=== PATIENT | female | born 1945 | race Caucasian/White ===

== ENCOUNTER → 2016-05-28 | Outpatient (REF) | payer MEDICARE ==
[~2016-05-28] MED LIST: /DULO30CA OR; ACET500C PO; ALBU17IN2 INH; ALBU83IN IN; AMLO10TA2 PO; AMLO5TAB OR; AMLO5TAB2 PO; ARTI99.0 OP; ASPI325T PO; ASPI81TA83 OR; ASPI81TAEC PO; BACL10TA2 PO; CHLO125TA PO; CLOB0.0515 EXT; CLON-404 PO; CLON0.3T OR; CLONI1TA PO; CYAN1000VL IM; CYMB1CAP5 PO; DIOV320T OR; DIVA500T9 PO; DRIS1CAP PO; DRIS50002 PO; DULO1CAP3 PO; FLON0.05; FLON0.054; FLUT1SPR2; GLIM4TAB PO; GLUC1000 OR; HYDRODIURIL PO; INSULADS SC; INSULANT SC; LEVO50TA2 OR; LIPI80TA PO; MAG400TA PO; META1TAB19 PO; METF1000 PO; OMEP20TA7 OR; OMEP40CA2 PO; PAIN325T OR; PLAV75TA PO; REST0.05 OU; SIMV20TA2 OR; SIMV20TA2 PO; SPIR25TA2 OR; SPIR25TA2 PO; SYNT50TA PO; TECF240C PO; TOPA100T8 PO; TOPI100T OR; VALS1TAB46 PO; VALS1TAB47 PO; VALS1TAB48 PO; VALT500T OR; VALT500T PO; ZITH500T PO; ZONI50CA3 PO; [UNRECOGNIZED DRUG - OTHER] PO; drisdol PO; proventil INH
[2016-05-28 12:32] LABS: MEAN CORPUSCULAR HEMOGLOBIN 32.2 pg (27.0-33.0); MEAN CORPUSCULAR HGB CONC 31.9 g/dl (32.0-36.5); MEAN CORPUSCULAR VOLUME 100.9 fl (80.0-96.0); RED CELL DISTRIBUTION WIDTH 13.8 % (11.5-14.5); WHITE BLOOD COUNT 6.8 K/mm3 (4.0-10.0)
[2016-05-28 13:05] LABS: CALCIUM LEVEL 9.6 MG/DL (8.8-10.2); CREATININE FOR GFR 1.05 MG/DL (0.55-1.02); GLOMERULAR FILTRATION RATE 55.5 (>45); POTASSIUM SERUM 3.8 MEQ/L (3.5-5.1)
== END ==
LOC: M SFHCADAM 08:47
PROVIDERS: ATTEND Family Medicine
DX: D53.9 Nutritional anemia, unspecified (principal); E11.8 Type 2 diabetes mellitus with unspecified complications

== ENCOUNTER → 2016-11-12 | Outpatient (REF) | payer MEDICARE ==
[~2016-11-12] MED LIST changes: -PLAV75TA PO; +PLAV75TA38 PO
[2016-11-12 18:26] LABS: IMMUNOGLOBULIN G 715 MG/DL (681-1648); TOTAL PROTEIN 7.4 GM/DL (6.4-8.2)
[2016-11-12 18:35] LABS: IMMUNOGLOBULIN M 14.7 MG/DL (40-230)
[2016-11-14 10:59] LABS: ALBUMIN 4.37 GM/DL (3.29-5.55)
[2016-11-15 00:07] LABS: FREE LAMBDA LIGHT CHAINS SERUM 12.9 mg/L (5.7-26.3); KAPPA/LAMBDA RATIO SERUM 1.24 (0.26-1.65)
== END ==
LOC: M LAB REF 16:41
PROVIDERS: ATTEND Internal Medicine Medical Oncology
DX: D47.2 Monoclonal gammopathy (principal)

== ENCOUNTER → 2016-11-21 | Outpatient (REF) | payer MEDICARE ==
[~2016-11-21] MED LIST changes: -CLON-404 PO; +CLON0.3T PO; -METF1000 PO; +METF10004 PO; +PLAV1TAB2 PO; -PLAV75TA38 PO; +TIZANIDINE; +TOPA100T12 PO; -TOPA100T8 PO
[2016-11-21 20:13] LABS: MICROSCOPIC INDICATED? MAN NO (NO)
== END ==
LOC: M SFHCADAM 15:50
PROVIDERS: ATTEND Family Medicine
DX: R35.0 Frequency of micturition (principal)

== ENCOUNTER 2016-11-28 17:18 | Emergency (ER) | payer MEDICARE, MEDICAID ==
[~2016-11-28] VITALS: Ht 152.4 cm; Wt 76.1 kg
[~2016-11-28 17:18] MED LIST changes: -TIZANIDINE
[2016-11-28] MEDS ORDERED: TIZANIDINE (17:31)
[2016-11-28] MEDS ORDERED: diphenhydrAMINE INJ 50MG/ML VIAL (J1200) IV STA (17:50)
[2016-11-28] MEDS ORDERED: NS 1,000 ML IV ONE (18:00)
[2016-11-28] MEDS ORDERED: METOCLOPRAMIDE INJ 10MG/2ML VIAL (J2765) IV ONE (18:00)
--- NOTE | 2016-11-28 18:14 | REP ---
REASON: Headache. COMPARISON: 03/13/2016 There is no change from the prior exam. 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 There is no evidence of an acute intracranial hemorrhagic or nonhemorrhagic event. There is no change in the appearance of the ventricles or sulci. There is no change in the appearance of the deep white matter. There is no change in appearance of the skull and there is no change in appearance of the paranasal sinuses and mastoid air cells. IMPRESSION: No changes, no acute disease. Signed by Orestes Lilly DO 11/28/2016 07:21 P
[2016-11-28 19:08] VITALS: BP 145/68
== END 2016-11-28 19:10 | disposition home or self-care (01) ==
LOC: M ED 17:18
DX: G43.909 Migraine, unspecified, not intractable, without status migrainosus (principal); E11.9 Type 2 diabetes mellitus without complications; G35 Multiple sclerosis; Z86.73 Personal history of transient ischemic attack (TIA), and cerebral infarction without residual deficits; Z88.1 Allergy status to other antibiotic agents; Z88.8 Allergy status to other drugs, medicaments and biological substances; Z79.82 Long term (current) use of aspirin; Z79.4 Long term (current) use of insulin; Z79.899 Other long term (current) drug therapy
CPT/HCPCS: 70450; 96374; 96375; 99283; J1200; J2765

== ENCOUNTER → 2016-12-18 | Outpatient (REF) | payer MEDICARE ==
[~2016-12-18] MED LIST changes: +TIZANIDINE
== END ==
LOC: M SMT 13:14
PROVIDERS: ATTEND Specialist
DX: N39.41 Urge incontinence (principal); R35.0 Frequency of micturition; R35.1 Nocturia

== ENCOUNTER → 2016-12-20 | Outpatient (REF) | payer MEDICARE ==
[2016-12-20 14:05] LABS: ALBUMIN 3.5 GM/DL (3.2-5.2); ALBUMIN/GLOBULIN RATIO 1.21 (1.00-1.93); ALKALINE PHOSPHATASE 67 U/L (45-117); ALT/SGPT 36 U/L (12-78); ANION GAP 11 MEQ/L (8-16); AST/SGOT 26 U/L (15-37); BILIRUBIN,TOTAL 0.5 MG/DL (0.2-1.0); BLOOD UREA NITROGEN 15 MG/DL (7-18); CARBON DIOXIDE LEVEL 27 MEQ/L (21-32); CHLORIDE LEVEL 103 MEQ/L (98-107); CHOLESTEROL LEVEL 136 MG/DL (<200); CREATININE FOR GFR 0.94 MG/DL (0.55-1.02); GLOMERULAR FILTRATION RATE > 60.0 (>45); GLUCOSE, FASTING 274 MG/DL (80-110); POTASSIUM SERUM 3.8 MEQ/L (3.5-5.1); SODIUM LEVEL 141 MEQ/L (136-145); TOTAL PROTEIN 6.4 GM/DL (6.4-8.2); TRIGLYCERIDES LEVEL 224 MG/DL (<150)
[2016-12-20 16:37] LABS: VITAMIN B12 LEVEL 533 PG/ML (247-911)
== END ==
LOC: M SFHCPLAZ 10:50
PROVIDERS: ATTEND Family Medicine
DX: E11.8 Type 2 diabetes mellitus with unspecified complications (principal); E78.2 Mixed hyperlipidemia; D51.9 Vitamin B12 deficiency anemia, unspecified

== ENCOUNTER → 2016-12-26 | Outpatient (REF) | payer MEDICARE ==
[2016-12-26 16:32] LABS: ALBUMIN 3.7 GM/DL (3.2-5.2); CALCIUM LEVEL 8.9 MG/DL (8.8-10.2); CREATININE FOR GFR 1.17 MG/DL (0.55-1.02); PHOSPHORUS LEVEL 2.6 MG/DL (2.5-4.9); POTASSIUM SERUM 3.9 MEQ/L (3.5-5.1)
== END ==
LOC: M SFHCPLAZ 14:38
PROVIDERS: ATTEND Physician Assistant
DX: E11.8 Type 2 diabetes mellitus with unspecified complications (principal)

== ENCOUNTER → 2017-01-01 | Outpatient (REF) | payer MEDICARE ==
[2017-01-01 16:42] LABS: ALBUMIN 3.7 GM/DL (3.2-5.2); CALCIUM LEVEL 9.6 MG/DL (8.8-10.2); CREATININE FOR GFR 1.06 MG/DL (0.55-1.02); GLOMERULAR FILTRATION RATE 54.7 (>45); PHOSPHORUS LEVEL 3.7 MG/DL (2.5-4.9); POTASSIUM SERUM 4.4 MEQ/L (3.5-5.1)
== END ==
LOC: M SFHCPLAZ 12:06
PROVIDERS: ATTEND Physician Assistant
DX: E11.8 Type 2 diabetes mellitus with unspecified complications (principal)

== ENCOUNTER → 2017-09-10 | Outpatient (REF) | payer MEDICARE ==
[2017-09-10 12:58] LABS: HEMATOCRIT 38.4 % (36.0-47.0); HEMOGLOBIN 12.7 g/dl (12.0-15.5); MEAN CORPUSCULAR HEMOGLOBIN 32.5 pg (27.0-33.0); MEAN CORPUSCULAR HGB CONC 33.1 g/dl (32.0-36.5); MEAN CORPUSCULAR VOLUME 98.2 fl (80.0-96.0); PLATELET COUNT, AUTOMATED 233 10^3/uL (150-450); RED BLOOD COUNT 3.91 10^6/uL (4.00-5.40); RED CELL DISTRIBUTION WIDTH 14.3 % (11.5-14.5); WHITE BLOOD COUNT 7.1 10^3/uL (4.0-10.0)
[2017-09-10 13:54] LABS: ALBUMIN 3.7 GM/DL (3.2-5.2); ALBUMIN/GLOBULIN RATIO 1.09 (1.00-1.93); ALKALINE PHOSPHATASE 66 U/L (45-117); ALT/SGPT 34 U/L (12-78); ANION GAP 9 MEQ/L (8-16); AST/SGOT 21 U/L (7-37); BILIRUBIN,TOTAL 0.3 MG/DL (0.2-1.0); BLOOD UREA NITROGEN 21 MG/DL (7-18); CALCIUM LEVEL 8.6 MG/DL (8.8-10.2); CARBON DIOXIDE LEVEL 23 MEQ/L (21-32); CHLORIDE LEVEL 110 MEQ/L (98-107); CHOLESTEROL LEVEL 104 MG/DL (<200); GLOMERULAR FILTRATION RATE > 60.0 (>45); GLUCOSE, FASTING 267 MG/DL (70-100); HDL CHOLESTEROL 46 MG/DL (>40); LDL CHOLESTEROL 24.8 MG/DL (<100); NON-HDL-C 58 MG/DL; SODIUM LEVEL 142 MEQ/L (136-145); TOTAL PROTEIN 7.1 GM/DL (6.4-8.2); TRIGLYCERIDES LEVEL 166 MG/DL (<150)
[2017-09-10 13:57] LABS: CREATININE, URINE 92.3 MG/DL; MALB URINE SIEMENS 12.8 MG/L; MAU/CREAT RATIO 13.8 MCG/MG (0.0-30.0)
[2017-09-10 15:20] LABS: ESTIMATED AVERAGE GLUCOSE 206 MG/DL (60-110); HEMOGLOBIN A1c 8.8 %
== END ==
LOC: M SFHCADAM 09:44
DX: E11.8 Type 2 diabetes mellitus with unspecified complications (principal); E78.2 Mixed hyperlipidemia; E03.9 Hypothyroidism, unspecified; D51.9 Vitamin B12 deficiency anemia, unspecified
CPT/HCPCS: 84443

== ENCOUNTER → 2017-10-03 | Outpatient (CLI) | payer MEDICARE | LOC: M WHC 07:47 | DX: Z12.31 Encounter for screening mammogram for malignant neoplasm of breast (principal); Z78.0 Asymptomatic menopausal state; Z80.0 Family history of malignant neoplasm of digestive organs; Z92.0 Personal history of contraception | CPT/HCPCS: 77067 ==

== ENCOUNTER → 2017-12-09 | Outpatient (CLI) | payer MEDICARE | LOC: M RAD 10:28 | DX: I63.9 Cerebral infarction, unspecified (principal); I65.23 Occlusion and stenosis of bilateral carotid arteries | CPT/HCPCS: 93880 ==

== ENCOUNTER → 2017-12-10 | Outpatient (REF) | payer MEDICARE | LOC: M SFHCADAM 11:40 | DX: R30.0 Dysuria (principal) | CPT/HCPCS: 87186 ==

== ENCOUNTER → 2018-02-12 | Outpatient (REF) | payer MEDICARE, MEDICAID ==
[2018-02-12 19:02] LABS: ESTIMATED AVERAGE GLUCOSE 197 MG/DL (60-110); HEMOGLOBIN A1c 8.5 %
== END ==
LOC: M SFHCPLAZ 15:41
DX: E11.8 Type 2 diabetes mellitus with unspecified complications (principal)
CPT/HCPCS: 83036

== ENCOUNTER → 2018-05-04 | Outpatient (REF) | payer MEDICARE, MEDICAID ==
[2018-05-04 18:04] LABS: BASO # 0.1 10^3/uL (0.0-0.2); BASO % 0.6 % (0.0-1.0); EOS # 0.3 10^3/uL (0.0-0.50); EOS % 3.3 % (0.0-3.0); HEMATOCRIT 38.6 % (36.0-47.0); HEMOGLOBIN 12.7 g/dl (12.0-15.5); IMMATURE GRANULOCYTE % 0.4 % (0-3.0); LYMPH # 1.4 10^3/uL (1.5-4.5); LYMPH % 17.8 % (24.0-44.0); MEAN CORPUSCULAR HEMOGLOBIN 35.7 pg (27.0-33.0); MEAN CORPUSCULAR HGB CONC 32.9 g/dl (32.0-36.5); MEAN CORPUSCULAR VOLUME 108.4 fl (80.0-96.0); MONO # 0.6 10^3/uL (0.0-0.8); MONO % 7.6 % (0.0-5.0); NEUTROPHILS # 5.5 10^3/uL (1.8-7.7); NEUTROPHILS % 70.3 % (36.0-66.0); PLATELET COUNT, AUTOMATED 273 10^3/uL (150-450); RED BLOOD COUNT 3.56 10^6/uL (4.00-5.40); RED CELL DISTRIBUTION WIDTH 14.3 % (11.5-14.5); WHITE BLOOD COUNT 7.8 10^3/uL (4.0-10.0)
[2018-05-04 18:31] LABS: ALBUMIN/GLOBULIN RATIO 1.43 (1.00-1.93); ALKALINE PHOSPHATASE 51 U/L (45-117); ALT/SGPT 30 U/L (12-78); ANION GAP 10 MEQ/L (8-16); AST/SGOT 16 U/L (7-37); BILIRUBIN,TOTAL 0.3 MG/DL (0.2-1.0); BLOOD UREA NITROGEN 15 MG/DL (7-18); CARBON DIOXIDE LEVEL 23 MEQ/L (21-32); CHLORIDE LEVEL 109 MEQ/L (98-107); CREATININE FOR GFR 1.05 MG/DL (0.55-1.30); GLOMERULAR FILTRATION RATE 55.2 (>39); GLUCOSE, FASTING 186 MG/DL (70-100); POTASSIUM SERUM 4.6 MEQ/L (3.5-5.1); SODIUM LEVEL 142 MEQ/L (136-145); TOTAL PROTEIN 6.8 GM/DL (6.4-8.2)
[2018-05-04 18:40] LABS: VITAMIN B12 LEVEL 1879 PG/ML
[2018-05-04 18:41] LABS: FOLATE 18.3 NG/ML
== END ==
LOC: M LABNEURO 11:34
DX: G35 Multiple sclerosis (principal)
CPT/HCPCS: 82746

== ENCOUNTER → 2018-07-07 | Outpatient (REF) | payer MEDICARE, MEDICAID ==
[~2018-07-07] MED LIST changes: -AMLO10TA2 PO; +AMLO10TA5 PO; -AMLO5TAB2 PO; +AMLO5TAB6 PO; -DRIS50002 PO; +DRIS50003 PO; +SPIR-10 PO; -SPIR25TA2 PO
[2018-07-07 18:16] LABS: BASO % 0.5 % (0.0-1.0); EOS # 0.4 10^3/uL (0.0-0.50); EOS % 4.6 % (0.0-3.0); HEMATOCRIT 37.5 % (36.0-47.0); HEMOGLOBIN 12.5 g/dl (12.0-15.5); LYMPH # 1.7 10^3/uL (1.5-4.5); LYMPH % 20.5 % (24.0-44.0); MEAN CORPUSCULAR HEMOGLOBIN 35.6 pg (27.0-33.0); MEAN CORPUSCULAR HGB CONC 33.3 g/dl (32.0-36.5); MEAN CORPUSCULAR VOLUME 106.8 fl (80.0-96.0); MONO # 0.5 10^3/uL (0.0-0.8); MONO % 5.8 % (0.0-5.0); NEUTROPHILS # 5.5 10^3/uL (1.8-7.7); NEUTROPHILS % 68.2 % (36.0-66.0); PLATELET COUNT, AUTOMATED 238 10^3/uL (150-450); RED BLOOD COUNT 3.51 10^6/uL (4.00-5.40); WHITE BLOOD COUNT 8.1 10^3/uL (4.0-10.0)
[2018-07-07 18:20] LABS: CALCIUM LEVEL 9.4 MG/DL (8.8-10.2); CREATININE FOR GFR 1.07 MG/DL (0.55-1.30); POTASSIUM SERUM 4.9 MEQ/L (3.5-5.1)
== END ==
LOC: M SFHCADAM 14:20
PROVIDERS: ATTEND Physician Assistant Medical
DX: R68.89 Other general symptoms and signs (principal); R19.5 Other fecal abnormalities; J06.9 Acute upper respiratory infection, unspecified
CPT/HCPCS: 80048; 85025; G0463

== ENCOUNTER → 2018-09-07 | Outpatient (REF) | payer MEDICARE, MEDICAID ==
[~2018-09-07] MED LIST changes: -/DULO30CA OR; +ASPI-1 PO; -ASPI325T PO; +CYMB1CAP5 OR; -META1TAB19 PO; +META400T PO; -VALS1TAB46 PO; -VALS1TAB47 PO; -VALS1TAB48 PO; +VALS1TAB66 PO; +VALS1TAB67 PO; +VALS1TAB68 PO
[2018-09-07 13:46] LABS: APPEARANCE, URINE CLEAR (CLEAR); BACTERIA, URINE AUTO NEGATIVE (NEGATIVE); BILIRUBIN, URINE AUTO 1+ (NEGATIVE); BLOOD, URINE BLOOD NEGATIVE (NEGATIVE); COLOR, URINE AMBER (YELLOW); GLUCOSE, URINE (UA) AUTO NEGATIVE (NEGATIVE); GRANULAR CAST, URINE AUTO 14 /LPF; KETONE, URINE AUTO TRACE mg/dL (NEGATIVE); LEUKOCYTE ESTERASE, URINE AUTO 1+ (NEGATIVE); MUCUS, URINE SMALL (NEGATIVE); NITRITE, URINE AUTO NEGATIVE (NEGATIVE); PROTEIN, URINE AUTO 1+ mg/dL (NEGATIVE); RBC, URINE AUTO 2 /HPF (0-3); SPECIFIC GRAVITY URINE AUTO 1.028 (1.002-1.035); SQUAMOUS EPITHELIAL CELL UR AU 1 /HPF (0-6); WBC, URINE AUTO 2 /HPF (0-3)
== END ==
LOC: M SMT 12:54
PROVIDERS: ATTEND Nurse Practitioner Women's Health
DX: N39.41 Urge incontinence (principal)
CPT/HCPCS: 51798; 81001; 87086; G0463

== ENCOUNTER → 2018-10-06 | Outpatient (CLI) | payer MEDICARE, MEDICAID ==
--- NOTE | 2018-10-06 12:59 | REPMRS ---
Patient History The patient states she had a clinical breast exam in August 2018.Family history of prostate cancer at age 67 in father, colorectal cancer at age 67 in brother, colorectal cancer at age 50 in brother. Reductions of both breasts. Took hormonal contraceptives for 7 years. Took unspecified hormones for 20 years. Digital Mammo Screening Bilat: October 06, 2018 - Exam #: [id number] Bilateral CC and MLO view(s) were taken. Technologist: Chandrika Garcia, Technologist Prior study comparison: October 03, 2017, digital woman screen mammo, performed at [facility]. December 29, 2012, bilateral bilat screen digital mammo, performed at [facility] ([facility]). December 20, 2010, bilateral screening mammogram, performed at [facility] ([facility]). FINDINGS: There are scattered fibroglandular densities. There has been no change in the appearance of the mammogram from the prior studies. There is a mild amount of scattered fibroglandular density which is fairly symmetric. There is no interval development of dominant mass, architectural distortion, or clustered microcalcification suggestive of malignancy. 3-D tomosynthesis shows no additional findings. Assessment: BI-RADS/ACR category 1 mammogram. Negative Mammogram. Recommendation Routine screening mammogram of both breasts in 1 year (for women over age 40). This patient's Lifetime Breast Cancer RIsk is estimated at 3.0 %. This mammogram was interpreted with the aid of an FDA-approved computer-aided dectection system. Electronically Signed By: Juan Barth MD 10/06/18 [id number]
== END ==
LOC: M RAD 11:02
PROVIDERS: ATTEND Family Medicine
DX: Z12.31 Encounter for screening mammogram for malignant neoplasm of breast (principal); Z80.0 Family history of malignant neoplasm of digestive organs; Z92.0 Personal history of contraception; Z92.23 Personal history of estrogen therapy

== ENCOUNTER → 2019-02-23 | Outpatient (CLI) | payer MEDICARE, MEDICAID ==
[~2019-02-23] MED LIST changes: -ARTI99.0 OP; +ARTIDRO2 OP; -DULO1CAP3 PO; +DULO1CAP6 PO
--- NOTE | 2019-02-23 15:01 | REP ---
CT of the abdomen pelvis without IV and oral contrast for renal calculus: There are no renal calculi. There are no ureteral calculi. There are no bladder calculi. There is no hydronephrosis or perinephric stranding. No renal cysts are identified. The study is insensitive for renal solid masses in the absence of IV contrast. The visualized lung pugh are unremarkable. The unenhanced hepatic parenchyma, gallbladder, pancreas, spleen, adrenals, abdominal aorta, bowel and mesentery are unremarkable except for sigmoid colon diverticulosis without CT evidence of diverticulitis. The sigmoid colon is quite tortuous extending across the midline into the abdominal right lower quadrant. There is no bowel distension or obstruction. Pelvis: The cecum is on a redundant mesentery and resides over the mid and. There are surgical clips at the cecal tip compatible with the history of appendectomy. There is a hysterectomy. The vaginal cuff and adnexa are unremarkable. The bladder is unremarkable. There is no pelvic ascites or adenopathy. Impression: There are no renal, ureteral or bladder calculi. There is no hydronephrosis. There is sigmoid diverticulosis without diverticulitis. The sigmoid colon is redundant and crosses the midline into the abdominal right lower quadrant. The cecum is on a redundant mesentery residing over the midline. There is an appendectomy. There are surgical clips at the cecal tip. There is no bowel distension or obstruction. No ascites or adenopathy. Hysterectomy. Electronically Signed by Jayy Moyer MD 02/23/2019 02:52 P
== END ==
LOC: M RAD 12:16
PROVIDERS: ATTEND Internal Medicine Nephrology
DX: N20.0 Calculus of kidney (principal); K57.30 Diverticulosis of large intestine without perforation or abscess without bleeding

== ENCOUNTER → 2019-02-24 | Outpatient (REF) | payer MEDICARE, MEDICAID | LOC: M LAB REF 15:51 | PROVIDERS: ATTEND Orthopaedic Surgery | DX: G56.01 Carpal tunnel syndrome, right upper limb (principal) ==

== ENCOUNTER → 2019-03-15 | Outpatient (REF) | payer MEDICARE, MEDICAID ==
[~2019-03-15] MED LIST changes: -GLIM4TAB PO; +GLIM4TAB3 PO; -OMEP40CA2 PO; +OMEP40CA97 PO
[2019-03-15 13:41] LABS: APPEARANCE, URINE CLEAR (CLEAR); BACTERIA, URINE AUTO NEGATIVE (NEGATIVE); BASO # 0.1 10^3/uL (0.0-0.2); BILIRUBIN, URINE AUTO NEGATIVE (NEGATIVE); BLOOD, URINE BLOOD NEGATIVE (NEGATIVE); COLOR, URINE YELLOW (YELLOW); EOS # 0.3 10^3/uL (0.0-0.5); EOS % 3.7 % (0.0-3.0); GLUCOSE, URINE (UA) AUTO NEGATIVE (NEGATIVE); HEMATOCRIT 40.6 % (36.0-47.0); HEMOGLOBIN 13.1 g/dl (12.0-15.5); KETONE, URINE AUTO TRACE mg/dL (NEGATIVE); LEUKOCYTE ESTERASE, URINE AUTO NEGATIVE (NEGATIVE); LYMPH # 1.8 10^3/uL (1.5-5.0); MEAN CORPUSCULAR HEMOGLOBIN 34.8 pg (27.0-33.0); MEAN CORPUSCULAR HGB CONC 32.3 g/dl (32.0-36.5); MONO # 0.8 10^3/uL (0.0-0.8); MONO % 8.9 % (0.0-5.0); MUCUS, URINE SMALL (NEGATIVE); NEUTROPHILS # 5.5 10^3/uL (1.5-8.5); NITRITE, URINE AUTO NEGATIVE (NEGATIVE); PLATELET COUNT, AUTOMATED 245 10^3/uL (150-450); PROTEIN, URINE AUTO NEGATIVE (NEGATIVE); RBC, URINE AUTO 0 /HPF (0-3); RED BLOOD COUNT 3.76 10^6/uL (4.00-5.40); SPECIFIC GRAVITY URINE AUTO 1.024 (1.002-1.035); SQUAMOUS EPITHELIAL CELL UR AU 0 /HPF (0-6); WBC, URINE AUTO 1 /HPF (0-3); WHITE BLOOD COUNT 8.4 10^3/uL (4.0-10.0)
[2019-03-15 14:10] LABS: ALBUMIN 4.3 GM/DL (3.2-5.2); BILIRUBIN,TOTAL 0.2 MG/DL (0.2-1.0); CALCIUM LEVEL 9.3 MG/DL (8.8-10.2); CREATININE FOR GFR 1.04 MG/DL (0.55-1.30); GLOMERULAR FILTRATION RATE 55.6 (>39); POTASSIUM SERUM 4.4 MEQ/L (3.5-5.1); TOTAL PROTEIN 7.4 GM/DL (6.4-8.2)
== END ==
LOC: M LABNEURO 11:20
PROVIDERS: ATTEND Psychiatry & Neurology Neurology
DX: G35 Multiple sclerosis (principal); Z79.899 Other long term (current) drug therapy

== ENCOUNTER → 2019-04-09 | Outpatient (CLI) | payer MEDICARE, MEDICAID ==
[2019-04-09 11:05] LABS: HEMATOCRIT 38.9 % (36.0-47.0); HEMOGLOBIN 12.5 g/dl (12.0-15.5); MEAN CORPUSCULAR HEMOGLOBIN 34.2 pg (27.0-33.0); MEAN CORPUSCULAR HGB CONC 32.1 g/dl (32.0-36.5); MEAN CORPUSCULAR VOLUME 106.6 fl (80.0-96.0); PLATELET COUNT, AUTOMATED 261 10^3/uL (150-450); RED BLOOD COUNT 3.65 10^6/uL (4.00-5.40); WHITE BLOOD COUNT 7.9 10^3/uL (4.0-10.0)
[2019-04-09 11:48] LABS: BILIRUBIN,TOTAL 0.3 MG/DL (0.2-1.0); CALCIUM LEVEL 9.1 MG/DL (8.8-10.2); CHOLESTEROL RISK RATIO 2.488 (<5); CREATININE FOR GFR 1.05 MG/DL (0.55-1.30); FREE T4 0.94 NG/DL (0.76-1.46); POTASSIUM SERUM 4.3 MEQ/L (3.5-5.1); THYROID STIMULATING HORMONE 2.73 uIU/ML (0.358-3.740); TOTAL PROTEIN 6.8 GM/DL (6.4-8.2)
[2019-04-09 11:52] LABS: MALB URINE SIEMENS 18.8 MG/L
[2019-04-09 11:56] LABS: HEMOGLOBIN A1c 7.6 %
== END ==
LOC: M LAB 10:17
PROVIDERS: ATTEND Family Medicine
DX: F32.9 Major depressive disorder, single episode, unspecified (principal); I11.9 Hypertensive heart disease without heart failure; E03.9 Hypothyroidism, unspecified; E11.8 Type 2 diabetes mellitus with unspecified complications

== ENCOUNTER → 2019-07-20 | Outpatient (REF) | payer MEDICARE, MEDICAID ==
[~2019-07-20] MED LIST changes: -ARTIDRO2 OP; -GLIM4TAB3 PO; +GLIM4TAB5 PO; +POLYOPD OP; -SIMV20TA2 PO; +SIMV20TA22 PO; +ZONI50CA11 PO; -ZONI50CA3 PO
[2019-07-20 12:51] LABS: HEMATOCRIT 37.7 % (36.0-47.0); HEMOGLOBIN 11.9 g/dl (12.0-15.5); MEAN CORPUSCULAR HEMOGLOBIN 33.5 pg (27.0-33.0); MEAN CORPUSCULAR HGB CONC 31.6 g/dl (32.0-36.5); MEAN CORPUSCULAR VOLUME 106.2 fl (80.0-96.0); PLATELET COUNT, AUTOMATED 268 10^3/uL (150-450); RED BLOOD COUNT 3.55 10^6/uL (4.00-5.40); WHITE BLOOD COUNT 8.9 10^3/uL (4.0-10.0)
[2019-07-20 13:21] LABS: HEMOGLOBIN A1c 7.6 %
[2019-07-20 13:29] LABS: ALT/SGPT 23 U/L (12-78); BILIRUBIN,TOTAL 0.3 MG/DL (0.2-1.0); BLOOD UREA NITROGEN 22 MG/DL (7-18); CALCIUM LEVEL 8.9 MG/DL (8.8-10.2); CARBON DIOXIDE LEVEL 25 MEQ/L (21-32); CHLORIDE LEVEL 110 MEQ/L (98-107); CHOLESTEROL LEVEL 108 MG/DL (<200); CHOLESTEROL RISK RATIO 2.769 (<5); CREATININE FOR GFR 1.05 MG/DL (0.55-1.30); FREE T4 1.04 NG/DL (0.76-1.46); GLUCOSE, FASTING 105 MG/DL (70-100); HDL CHOLESTEROL 39 MG/DL (>40); LDL CHOLESTEROL 42 MG/DL (<100); NON-HDL-C 69 MG/DL; POTASSIUM SERUM 4.1 MEQ/L (3.5-5.1); SODIUM LEVEL 142 MEQ/L (136-145); TOTAL PROTEIN 7.1 GM/DL (6.4-8.2); TRIGLYCERIDES LEVEL 137 MG/DL (<150); VITAMIN B12 LEVEL 1239 PG/ML (247-911)
[2019-07-22 00:07] LABS: FREE KAPPA LIGHT CHAINS SERUM 17.6 mg/L (3.3-19.4); FREE LAMBDA LIGHT CHAINS SERUM 14.5 mg/L (5.7-26.3); KAPPA/LAMBDA RATIO SERUM 1.21 (0.26-1.65)
[2019-07-22 10:51] LABS: ALBUMIN 4.35 GM/DL (3.29-5.55); ALBUMIN % 61.2 % (55.8-66.1); ALPHA-1-GLOBULIN % 4.9 % (2.9-4.9); ALPHA-1-GLOBULINS 0.35 GM/DL (0.17-0.41); ALPHA-2-GLOBULINS 0.92 GM/DL (0.42-0.99); ALPHA-2-GLOBULINS % 12.9 % (7.1-11.8); BETA-1-GLOBULINS 0.55 GM/DL (0.28-0.60); BETA-1-GLOBULINS % 7.8 % (4.7-7.2); BETA-2-GLOBULINS 0.35 GM/DL (0.19-0.55); BETA-2-GLOBULINS % 4.9 % (3.2-6.5); GAMMA GLOBULIN % 8.3 % (11.1-18.8); GAMMA GLOBULINS 0.59 GM/DL (0.65-1.58)
== END ==
LOC: M SFHCADAM 11:18
PROVIDERS: ATTEND Family Medicine
DX: D51.9 Vitamin B12 deficiency anemia, unspecified (principal); E11.8 Type 2 diabetes mellitus with unspecified complications; E03.9 Hypothyroidism, unspecified; D75.89 Other specified diseases of blood and blood-forming organs; E78.2 Mixed hyperlipidemia

== ENCOUNTER → 2019-07-20 | Outpatient (CLI) | payer MEDICARE, MEDICAID ==
--- NOTE | 2019-07-20 14:07 | REP ---
CHEST, TWO VIEWS: COMPARISON: 03/15/2016 There is no evidence of acute infiltrate. The heart is normal in size. There is calcification of the thoracic aorta. Mediastinal silhouette is unchanged. There is mild curvature of the thoracic spine towards the right with diffuse degenerative changes. IMPRESSION: No acute pulmonary disease. Electronically Signed by Jayy Domingo MD 07/20/2019 08:19 P
== END ==
LOC: M ADAMS 11:24
PROVIDERS: ATTEND Family Medicine
DX: R53.83 Other fatigue (principal); E11.8 Type 2 diabetes mellitus with unspecified complications
CPT/HCPCS: 71046; 80053; 80061; 82607; 83036; 83883; 84165; 84439; 84443; 85027; 86335; G0463

== ENCOUNTER → 2019-11-08 | Outpatient (CLI) | payer MEDICARE, MEDICAID ==
--- NOTE | 2019-11-08 12:38 | REP ---
REASON: Hematuria. Limited pelvic ultrasound was obtained to assess the urinary bladder. The pre-void urinary bladder volume calculation is 126 mL and the postvoid urinary bladder volume calculation is 73 mL. This renders a 57.9% postvoid residual. No gross urinary bladder abnormalities were noted. Doppler at the UV junction failed to identify urojet phenomena on either side. IMPRESSION: As above. Electronically Signed by Orestes Lilly DO 11/08/2019 04:03 P
== END ==
LOC: M LRY 09:27
PROVIDERS: ATTEND Nurse Practitioner Family
DX: R31.9 Hematuria, unspecified (principal)

== ENCOUNTER → 2019-12-28 | Outpatient (REF) | payer MEDICARE, MEDICAID ==
[~2019-12-28] MED LIST changes: -AMLO10TA5 PO; +AMLO1TAB24 PO; +AMLO1TAB25 PO; -AMLO5TAB6 PO; +CARV6.25 PO; +CYMB60CA3 PO; +DEPA250T32 PO; +DILT60TA PO; +ELIQ5TAB; +FAMO40TA3; +HYDR-643; +LANTINJ4; +LEVO75TA4; +MAPA500T2 PO; +TOPI100T9; +VENTAER
== END ==
LOC: M LAB REF 16:49
PROVIDERS: ATTEND Nurse Practitioner Family
DX: L08.9 Local infection of the skin and subcutaneous tissue, unspecified (principal)

== ENCOUNTER → 2020-01-19 | Outpatient (REF) | payer MEDICARE, MEDICAID | LOC: M LAB REF 10:10 | PROVIDERS: ATTEND Ophthalmology | DX: H02.831 Dermatochalasis of right upper eyelid (principal); H02.89 Other specified disorders of eyelid ==

== ENCOUNTER → 2020-03-07 | Outpatient (REF) | payer MEDICARE, MEDICAID ==
[2020-03-07 17:59] LABS: PERCENT SATURATION 8.3 % (13.2-45.0)
[2020-03-07 18:10] LABS: FOLATE 13.5 NG/ML
== END ==
LOC: M LAB REF 17:10
PROVIDERS: ATTEND Nurse Practitioner Family
DX: D50.9 Iron deficiency anemia, unspecified (principal)

== ENCOUNTER → 2020-03-15 | Outpatient (CLI) | payer MEDICARE, MEDICAID | LOC: M LABSMTC 11:59 | PROVIDERS: ATTEND Anesthesiology | DX: Z01.812 Encounter for preprocedural laboratory examination (principal); Z20.828 Contact with and (suspected) exposure to other viral communicable diseases | CPT/HCPCS: C9803; U0003 ==

== ENCOUNTER 2020-03-20 08:52 | Day surgery (SDC) | payer MEDICARE, MEDICAID ==
[~2020-03-20] VITALS: Ht 152.4 cm; Wt 71.7 kg
[~2020-03-20 08:52] MED LIST changes: -CARV6.25 PO; -CYMB60CA3 PO; -DEPA250T32 PO; -DILT60TA PO; +NS 1,000 ML IV ONE
[2020-03-20] MEDS ORDERED: propofoL 500 MG/50 ML VIAL As Ordered ONE (09:44)
[2020-03-20] MEDS ORDERED: LIDOCAINE 2% 100MG/5ML SDV (FOR ANES.) As Ordered ONE (09:51)
--- NOTE | 2020-03-20 10:28 | ROOR ---
Patient Name: Juani Yang Procedure Date: 03/20/2020 10:11 AM Date of : 1945 Age: 74 Room: [facility] Gender: Female Note Status: Finalized Procedure: Upper Endoscopy + Biopsies Indications: Iron deficiency anemia, Unexplained iron deficiency anemia Providers: Lucas Rodrigues MD Referring MD: Karl Michel MD Requesting Provider: Medicines: Monitored Anesthesia Care Complications: No immediate complications. Procedure: Pre-Anesthesia Assessment: - The heart rate, respiratory rate, oxygen saturations, blood pressure, adequacy of pulmonary ventilation, and response to care were monitored throughout the procedure. The Endoscope was introduced through the mouth, and advanced to the second part of duodenum. The upper GI endoscopy was accomplished without difficulty. The patient tolerated the procedure well. Findings: The Z-line was variable and was found 35 cm from the incisors. A small hiatal hernia was present. No other significant abnormalities were identified in a careful examination of the stomach. Biopsies were taken with a cold forceps in the gastric antrum for Helicobacter pylori testing. The exam of the duodenum was otherwise normal. Biopsies for histology were taken with a cold forceps in the first portion of the duodenum for evaluation of celiac disease. Impression: - Z-line variable, 35 cm from the incisors. - Small hiatal hernia. - Biopsies were taken with a cold forceps for Helicobacter pylori testing. - Biopsies were taken with a cold forceps for evaluation of celiac disease. - The examination was otherwise normal. Recommendation: - Patient has a contact number available for emergencies. The signs and symptoms of potential delayed complications were discussed with the patient. Return to normal activities tomorrow. Written discharge instructions were provided to the patient. - High fiber diet. - Discharge patient to home. - Follow an antireflux regimen. - Continue present medications. - Await pathology results. - Telephone GI clinic for pathology results in 1 week. - Return to referring physician. Lucas Rodrigues MD Lucas Rodrigues MD 03/20/2020 10:27:55 AM Electronically signed by Lucas Rodrigues MD Number of Addenda: 0 Note Initiated On: 03/20/2020 10:11 AM Estimated Blood Loss: Estimated blood loss: none.
--- NOTE | 2020-03-20 10:49 | ROOR ---
Patient Name: Juani Yang Procedure Date: 03/20/2020 10:12 AM Date of : 1945 Age: 74 Room: [facility] Gender: Female Note Status: Finalized Procedure: Total Colonoscopy to Cecum Indications: Iron deficiency anemia Providers: Lucas Rodrigues MD Referring MD: Karl Michel MD Requesting Provider: Medicines: Monitored Anesthesia Care Complications: No immediate complications. Procedure: Pre-Anesthesia Assessment: - The heart rate, respiratory rate, oxygen saturations, blood pressure, adequacy of pulmonary ventilation, and response to care were monitored throughout the procedure. The Colonoscope was introduced through the anus and advanced to the cecum, identified by appendiceal orifice and ileocecal valve. The colonoscopy was performed without difficulty. The patient tolerated the procedure well. The quality of the bowel preparation was excellent. Findings: The perianal and digital rectal examinations were normal. Non-bleeding internal hemorrhoids were found during retroflexion. The hemorrhoids were small and Grade I (internal hemorrhoids that do not prolapse). Multiple small and large-mouthed diverticula were found in the recto-sigmoid colon, sigmoid colon and descending colon. The exam was otherwise without abnormality on direct and retroflexion views. Impression: - Non-bleeding internal hemorrhoids. - Diverticulosis in the recto-sigmoid colon, in the sigmoid colon and in the descending colon. - The examination was otherwise normal on direct and retroflexion views. - No specimens collected. - The exam was otherwise normal to the cecum. Recommendation: - Patient has a contact number available for emergencies. The signs and symptoms of potential delayed complications were discussed with the patient. Return to normal activities tomorrow. Written discharge instructions were provided to the patient. - High fiber diet. - Discharge patient to home. - Repeat colonoscopy is not recommended due to current age (66 years or older) for screening purposes. - Return to referring physician. - The findings and recommendations were discussed with the patient. Lucas Rodrigues MD Lucas Rodrigues MD 03/20/2020 10:48:44 AM Electronically signed by Lucas Rodrigues MD Number of Addenda: 0 Note Initiated On: 03/20/2020 10:12 AM Estimated Blood Loss: Estimated blood loss: none.
== END 2020-03-20 11:31 | disposition home or self-care (01) ==
LOC: M OPP 08:52
PROVIDERS: ATTEND Internal Medicine Gastroenterology
DX: K57.30 Diverticulosis of large intestine without perforation or abscess without bleeding (principal); K64.0 First degree hemorrhoids; D50.9 Iron deficiency anemia, unspecified; K22.8 Other specified diseases of esophagus; K44.9 Diaphragmatic hernia without obstruction or gangrene; E10.9 Type 1 diabetes mellitus without complications; K21.9 Gastro-esophageal reflux disease without esophagitis; Z79.4 Long term (current) use of insulin; Z79.82 Long term (current) use of aspirin; Z79.899 Other long term (current) drug therapy; Z88.8 Allergy status to other drugs, medicaments and biological substances; Z95.5 Presence of coronary angioplasty implant and graft

== ENCOUNTER 2020-03-23 08:01 | Outpatient (CLI) | payer MEDICARE, MEDICAID ==
[~2020-03-23] VITALS: Ht 152.4 cm; Wt 70.0 kg
[~2020-03-23 08:01] MED LIST changes: +ALBUTEROL SULFATE 2.5 MG/0.5 ML INH NEB SOLN INH PRN; +EPINEPHrine INJ 1 MG/ML 1ML AMP IM PRN; +FERRIC CARBOXYMALTOSE INJ 750 MG in NS 250 ML IV ONE; -NS 1,000 ML IV ONE; +NS 1,000 ML IV SCH; +diphenhydrAMINE 50MG/ML VIAL (J1200) IV PRN; +methylPREDNISolone 125MG 2ML VIAL IV PRN
[2020-03-23 08:14] VITALS: BP 140/66
[2020-03-23] MEDS ORDERED: CARV6.25 PO (08:34)
[2020-03-23] MEDS ORDERED: DEPA250T32 PO (08:36)
[2020-03-23] MEDS ORDERED: CYMB60CA3 PO (08:36)
[2020-03-23] MEDS ORDERED: DILT60TA PO (08:36)
[2020-03-23 09:35] VITALS: BP 137/66
[2020-03-23 10:59] VITALS: BP 156/72
== END 2020-03-23 11:00 | disposition home or self-care (01) ==
LOC: M INFU 08:01
PROVIDERS: ATTEND Internal Medicine Nephrology
DX: N18.9 Chronic kidney disease, unspecified (principal); D63.1 Anemia in chronic kidney disease
CPT/HCPCS: 96365; J1439

== ENCOUNTER 2020-03-30 08:25 | Outpatient (CLI) | payer MEDICARE, MEDICAID ==
[~2020-03-30] VITALS: Ht 152.4 cm; Wt 70.0 kg
[~2020-03-30 08:25] MED LIST changes: -ALBUTEROL SULFATE 2.5 MG/0.5 ML INH NEB SOLN INH PRN; +CARV6.25 PO; +CYMB60CA3 PO; +DEPA250T32 PO; +DILT60TA PO; -EPINEPHrine INJ 1 MG/ML 1ML AMP IM PRN; -FERRIC CARBOXYMALTOSE INJ 750 MG in NS 250 ML IV ONE; -NS 1,000 ML IV SCH; -diphenhydrAMINE 50MG/ML VIAL (J1200) IV PRN; -methylPREDNISolone 125MG 2ML VIAL IV PRN
[2020-03-30] MEDS ORDERED: diphenhydrAMINE 50MG/ML VIAL (J1200) IV PRN (08:30)
[2020-03-30] MEDS ORDERED: ALBUTEROL SULFATE 2.5 MG/0.5 ML INH NEB SOLN INH PRN (08:30)
[2020-03-30] MEDS ORDERED: FERRIC CARBOXYMALTOSE INJ 750 MG in NS 250 ML IV ONE (08:30)
[2020-03-30] MEDS ORDERED: methylPREDNISolone 125MG 2ML VIAL IV PRN (08:30)
[2020-03-30] MEDS ORDERED: NS 1,000 ML IV SCH (08:30)
[2020-03-30] MEDS ORDERED: EPINEPHrine INJ 1 MG/ML 1ML AMP IM PRN (08:30)
[2020-03-30 08:42] VITALS: BP 108/88
[2020-03-30 10:17] VITALS: BP 113/81
== END 2020-03-30 10:15 | disposition home or self-care (01) ==
LOC: M INFU 08:25
PROVIDERS: ATTEND Internal Medicine Nephrology
DX: N18.9 Chronic kidney disease, unspecified (principal); D63.1 Anemia in chronic kidney disease
CPT/HCPCS: 96365; J1439

== ENCOUNTER → 2020-04-24 | Outpatient (REF) | payer MEDICARE, MEDICAID ==
[2020-04-24 14:19] LABS: HEMATOCRIT 39.4 % (36.0-47.0); HEMOGLOBIN 12.6 g/dl (12.0-15.5); MEAN CORPUSCULAR HEMOGLOBIN 35.3 pg (27.0-33.0); MEAN CORPUSCULAR VOLUME 110.4 fl (80.0-96.0); PLATELET COUNT, AUTOMATED 211 10^3/uL (150-450); RED BLOOD COUNT 3.57 10^6/uL (4.00-5.40); WHITE BLOOD COUNT 6.9 10^3/uL (4.0-10.0)
[2020-04-24 14:58] LABS: ALBUMIN 3.9 GM/DL (3.2-5.2); BILIRUBIN,TOTAL 0.3 MG/DL (0.2-1.0); CALCIUM LEVEL 8.9 MG/DL (8.8-10.2); CHOLESTEROL RISK RATIO 2.489 (<5); CREATININE FOR GFR 1.17 MG/DL (0.55-1.30); FREE T4 1.03 NG/DL (0.76-1.46); GLOMERULAR FILTRATION RATE 48.4 (>39); PERCENT SATURATION 30.5 % (13.2-45.0); POTASSIUM SERUM 4.4 MEQ/L (3.5-5.1); THYROID STIMULATING HORMONE 4.4 uIU/ML (0.358-3.740); TOTAL PROTEIN 6.7 GM/DL (6.4-8.2)
== END ==
LOC: M SFHCADAM 10:34
PROVIDERS: ATTEND Family Medicine
DX: D50.9 Iron deficiency anemia, unspecified (principal); I11.9 Hypertensive heart disease without heart failure; E11.22 Type 2 diabetes mellitus with diabetic chronic kidney disease; E03.9 Hypothyroidism, unspecified; D51.9 Vitamin B12 deficiency anemia, unspecified; Z95.5 Presence of coronary angioplasty implant and graft; Z23 Encounter for immunization
CPT/HCPCS: 36415; 80053; 80061; 82607; 82728; 83550; 84439; 84443; 85027; 85046; 90682; G0008; G0463

== ENCOUNTER → 2020-07-14 | Outpatient (REF) | payer MEDICARE, MEDICAID ==
[~2020-07-14] MED LIST changes: +ASPI-569 PO; -ASPI81TAEC PO; -MAG400TA PO; +MAGN400T35 PO
[2020-07-14 18:05] LABS: PERCENT SATURATION 23.3 % (13.2-45.0)
== END ==
LOC: M LAB REF 16:40
PROVIDERS: ATTEND Nurse Practitioner Family
DX: D50.9 Iron deficiency anemia, unspecified (principal)
CPT/HCPCS: 83550; G0463

== ENCOUNTER → 2020-08-30 | Outpatient (REF) | payer MEDICARE, MEDICAID ==
[2020-08-30 17:21] LABS: HEMOGLOBIN 13.5 g/dl (12.0-15.5); MEAN CORPUSCULAR HEMOGLOBIN 38.6 pg (27.0-33.0); MEAN CORPUSCULAR HGB CONC 32.9 g/dl (32.0-36.5); PLATELET COUNT, AUTOMATED 220 10^3/uL (150-450)
[2020-08-30 17:39] LABS: MEAN CORPUSCULAR VOLUME 117.1 fl (80.0-96.0)
[2020-08-30 17:45] LABS: ALBUMIN 4.1 GM/DL (3.2-5.2); ALT/SGPT 37 U/L (12-78); BILIRUBIN,TOTAL 0.3 MG/DL (0.2-1.0); BLOOD UREA NITROGEN 18 MG/DL (7-18); CALCIUM LEVEL 9.6 MG/DL (8.8-10.2); CARBON DIOXIDE LEVEL 26 MEQ/L (21-32); CHLORIDE LEVEL 113 MEQ/L (98-107); CREATININE FOR GFR 0.91 MG/DL (0.55-1.30); FERRITIN 253 NG/ML (8-252); GLOMERULAR FILTRATION RATE > 60.0 (>39); GLUCOSE, FASTING 80 MG/DL (70-100); IRON (FE) 66 UG/DL (50-170); PERCENT SATURATION 20.1 % (13.2-45.0); POTASSIUM SERUM 4.2 MEQ/L (3.5-5.1); SODIUM LEVEL 144 MEQ/L (136-145); TOTAL IRON BINDING CAPACITY 329 UG/DL (250-450); TOTAL PROTEIN 6.7 GM/DL (6.4-8.2)
[2020-08-30 17:46] LABS: HEMOGLOBIN A1c 6.2 %
[2020-08-30 17:53] LABS: VITAMIN B12 LEVEL 1208 PG/ML
[2020-08-30 17:54] LABS: FOLATE 17.6 NG/ML
== END ==
LOC: M SFHCADAM 14:45
PROVIDERS: ATTEND Family Medicine
DX: E11.8 Type 2 diabetes mellitus with unspecified complications (principal); E11.649 Type 2 diabetes mellitus with hypoglycemia without coma; D50.9 Iron deficiency anemia, unspecified; I10 Essential (primary) hypertension

== ENCOUNTER → 2020-10-09 | Outpatient (CLI) | payer MEDICARE, MEDICAID | LOC: M LAB 14:10 | PROVIDERS: ATTEND Family Medicine | DX: E11.8 Type 2 diabetes mellitus with unspecified complications (principal) ==

== ENCOUNTER → 2020-10-11 | Outpatient (REF) | payer MEDICARE, MEDICAID ==
[2020-10-11 13:09] LABS: APPEARANCE, URINE CLEAR (CLEAR); BACTERIA, URINE AUTO NEGATIVE (NEGATIVE); BILIRUBIN, URINE AUTO NEGATIVE (NEGATIVE); BLOOD, URINE BLOOD NEGATIVE (NEGATIVE); COLOR, URINE YELLOW (YELLOW); GLUCOSE, URINE (UA) AUTO NEGATIVE (NEGATIVE); KETONE, URINE AUTO NEGATIVE (NEGATIVE); LEUKOCYTE ESTERASE, URINE AUTO NEGATIVE (NEGATIVE); NITRITE, URINE AUTO NEGATIVE (NEGATIVE); PROTEIN, URINE AUTO NEGATIVE (NEGATIVE); RBC, URINE AUTO 0 /HPF (0-3); SPECIFIC GRAVITY URINE AUTO 1.017 (1.002-1.035); SQUAMOUS EPITHELIAL CELL UR AU 1 /HPF (0-6); UROBILINOGEN, URINE AUTO 0.2 mg/dL (0.0-2.0); WBC, URINE AUTO 1 /HPF (0-3)
== END ==
LOC: M SFHCADAM 09:03
PROVIDERS: ATTEND Family Medicine
DX: R32 Unspecified urinary incontinence (principal)
CPT/HCPCS: 81001; 87086; G0463

== ENCOUNTER → 2021-01-05 | Outpatient (CLI) | payer MEDICARE, MEDICAID ==
[~2021-01-05] MED LIST changes: +OMEP40CA4 PO; -OMEP40CA97 PO
[2021-01-05 11:50] LABS: BLOOD UREA NITROGEN 19 MG/DL (7-18); CALCIUM LEVEL 9.4 MG/DL (8.8-10.2); CARBON DIOXIDE LEVEL 27 MEQ/L (21-32); CHLORIDE LEVEL 114 MEQ/L (98-107); GLOMERULAR FILTRATION RATE > 60.0 (>39); GLUCOSE, FASTING 156 MG/DL (70-100); POTASSIUM SERUM 4.3 MEQ/L (3.5-5.1); SODIUM LEVEL 144 MEQ/L (136-145)
[2021-01-05 11:51] LABS: HEMOGLOBIN A1c 6.2 %
== END ==
LOC: M LAB 10:29
PROVIDERS: ATTEND Family Medicine
DX: E11.8 Type 2 diabetes mellitus with unspecified complications (principal)

== ENCOUNTER → 2021-03-20 | Outpatient (REF) | payer MEDICARE, MEDICAID ==
[~2021-03-20] MED LIST changes: -CYMB60CA3 PO; +CYMB60CA4 PO
== END ==
LOC: M LAB REF 12:46
PROVIDERS: ATTEND Nurse Practitioner Family
DX: E83.42 Hypomagnesemia (principal)

== ENCOUNTER 2021-04-13 08:24 | Outpatient (CLI) | payer MEDICARE, MEDICAID ==
[~2021-04-13] VITALS: Ht 162.6 cm; Wt 64.0 kg
[~2021-04-13 08:24] MED LIST changes: +ALBUTEROL 90 MCG/ACT 8GM HFA INHALER INH PRN; +ALBUTEROL SULFATE 2.5 MG/0.5 ML INH NEB SOLN INH PRN; +EPINEPHrine INJ 1 MG/ML 1ML AMP IM PRN; +NS 1,000 ML IV SCH; +diphenhydrAMINE 50MG/ML VIAL (J1200) IV PRN; +methylPREDNISolone 125MG 2ML VIAL IV PRN
[2021-04-13] MEDS ORDERED: diphenhydrAMINE 50MG CAP PO ONE (08:30)
[2021-04-13] MEDS ORDERED: methylPREDNISolone 40MG 1ML VIAL IV ONE (08:30)
[2021-04-13] MEDS ORDERED: CASIRIVIMAB (REGN10933) 600 MG, IMDEVIMAB (REGN10987) 600 MG in NS 250 ML IV ONE (08:30)
[2021-04-13 08:51] VITALS: BP 125/61
[2021-04-13 09:21] VITALS: BP 109/56
[2021-04-13 09:51] VITALS: BP 109/50
[2021-04-13 10:51] VITALS: BP 114/56
== END 2021-04-13 10:51 | disposition home or self-care (01) ==
LOC: M OPCLI4PR 08:24
PROVIDERS: ATTEND Family Medicine
DX: U07.1 COVID-19 (principal); Z88.1 Allergy status to other antibiotic agents; Z88.6 Allergy status to analgesic agent
CPT/HCPCS: 96375; J2920; M0243

== ENCOUNTER → 2021-05-22 | Outpatient (CLI) | payer MEDICARE, MEDICAID ==
[~2021-05-22] MED LIST changes: +AIMO70IN2 SC; -ALBUTEROL 90 MCG/ACT 8GM HFA INHALER INH PRN; -ALBUTEROL SULFATE 2.5 MG/0.5 ML INH NEB SOLN INH PRN; +B-122500 PO; +CVS10CAP7 PO; +D31000TA2 PO; +DULO1CAP5 PO; -ELIQ5TAB; +ELIQ5TAB PO; -EPINEPHrine INJ 1 MG/ML 1ML AMP IM PRN; -FAMO40TA3; +FAMO40TA3 PO; -LANTINJ4; +LANTINJ4 SC; -LEVO75TA4; +LEVO75TA4 PO; +LOSA50TA28 PO; +MAGN400T2 PO; +META1TAB22 PO; +META28.32 PO; +MYRB50TA PO; +NATE60TA5 PO; -NS 1,000 ML IV SCH; +OXYB5TAB10 PO; +ROPI1TAB3 PO; -TOPI100T9; +TOPI100T9 PO; +VALA1TAB5 PO; -diphenhydrAMINE 50MG/ML VIAL (J1200) IV PRN; -methylPREDNISolone 125MG 2ML VIAL IV PRN
[2021-05-22 11:33] LABS: HEMATOCRIT 38.7 % (36.0-47.0); HEMOGLOBIN 12.7 g/dl (12.0-15.5); MEAN CORPUSCULAR HEMOGLOBIN 37.5 pg (27.0-33.0); MEAN CORPUSCULAR HGB CONC 32.8 g/dl (32.0-36.5); PLATELET COUNT, AUTOMATED 187 10^3/uL (150-450); RED BLOOD COUNT 3.39 10^6/uL (4.00-5.40); WHITE BLOOD COUNT 7.4 10^3/uL (4.0-10.0)
[2021-05-22 11:34] LABS: MEAN CORPUSCULAR VOLUME 114.2 fl (80.0-96.0)
[2021-05-22 11:49] LABS: HEMOGLOBIN A1c 6.1 %
[2021-05-22 12:18] LABS: ALBUMIN 3.7 GM/DL (3.2-5.2); ALT/SGPT 32 U/L (12-78); BILIRUBIN,TOTAL 0.3 MG/DL (0.2-1.0); BLOOD UREA NITROGEN 24 MG/DL (7-18); CARBON DIOXIDE LEVEL 26 MEQ/L (21-32); CHLORIDE LEVEL 111 MEQ/L (98-107); CHOLESTEROL LEVEL 117 MG/DL (<200); CHOLESTEROL RISK RATIO 3.078 (<5); CREATININE FOR GFR 1.01 MG/DL (0.55-1.30); FERRITIN 157 NG/ML (8-252); FOLATE 14.3 NG/ML (>5.4); GLOMERULAR FILTRATION RATE 57.2 (>39); GLUCOSE, FASTING 77 MG/DL (70-100); HDL CHOLESTEROL 38 MG/DL (>40); LDL CHOLESTEROL 48 MG/DL (<100); NON-HDL-C 79 MG/DL; POTASSIUM SERUM 4.3 MEQ/L (3.5-5.1); SODIUM LEVEL 144 MEQ/L (136-145); TOTAL 25(OH) VITAMIN D 31.7 NG/ML (30.0-100.0); TOTAL PROTEIN 6.3 GM/DL (6.4-8.2); TRIGLYCERIDES LEVEL 156 MG/DL (<150); VITAMIN B12 LEVEL > 2000 PG/ML (247-911)
== END ==
LOC: M WUC 08:30
PROVIDERS: ATTEND Family Medicine
DX: E11.22 Type 2 diabetes mellitus with diabetic chronic kidney disease (principal); E55.9 Vitamin D deficiency, unspecified; D51.9 Vitamin B12 deficiency anemia, unspecified; E03.9 Hypothyroidism, unspecified; D50.9 Iron deficiency anemia, unspecified

== ENCOUNTER → 2021-07-12 | Outpatient (REF) | payer OTHER, MEDICAID | LOC: M SFHCADAM 13:02 | PROVIDERS: ATTEND Physician Assistant | DX: R10.9 Unspecified abdominal pain (principal) ==

== ENCOUNTER → 2021-08-28 | Outpatient (REF) | payer OTHER, MEDICAID ==
[~2021-08-28] MED LIST changes: -D31000TA2 PO; +NATE60TA13 PO; -NATE60TA5 PO; +VITA100093 PO
[2021-08-28 17:54] LABS: BASO % 0.6 % (0.0-1.0); EOS # 0.2 10^3/uL (0.0-0.5); EOS % 3.2 % (0.0-3.0); HEMATOCRIT 37.4 % (36.0-47.0); HEMOGLOBIN 12.9 g/dl (12.0-15.5); LYMPH # 1.9 10^3/uL (1.5-5.0); LYMPH % 31.1 % (24.0-44.0); MEAN CORPUSCULAR HEMOGLOBIN 37.9 pg (27.0-33.0); MEAN CORPUSCULAR HGB CONC 34.5 g/dl (32.0-36.5); MONO # 0.5 10^3/uL (0.0-0.8); MONO % 8.5 % (2.0-8.0); NEUTROPHILS # 3.5 10^3/uL (1.5-8.5); NEUTROPHILS % 56.4 % (36.0-66.0); PLATELET COUNT, AUTOMATED 200 10^3/uL (150-450); WHITE BLOOD COUNT 6.2 10^3/uL (4.0-10.0)
[2021-08-28 18:16] LABS: ERYTHROCYTE SEDIMENTATION RATE 9 mm/hr (0-30)
[2021-08-28 18:18] LABS: ALBUMIN 3.7 GM/DL (3.2-5.2); ALT/SGPT 26 U/L (12-78); BILIRUBIN,TOTAL 0.3 MG/DL (0.2-1.0); BLOOD UREA NITROGEN 15 MG/DL (7-18); CALCIUM LEVEL 8.8 MG/DL (8.8-10.2); CARBON DIOXIDE LEVEL 28 MEQ/L (21-32); CHLORIDE LEVEL 112 MEQ/L (98-107); CREATININE FOR GFR 0.92 MG/DL (0.55-1.30); GLOMERULAR FILTRATION RATE > 60.0 (>39); GLUCOSE, FASTING 110 MG/DL (70-100); POTASSIUM SERUM 4.1 MEQ/L (3.5-5.1); SODIUM LEVEL 145 MEQ/L (136-145); TOTAL PROTEIN 6.2 GM/DL (6.4-8.2)
[2021-08-28 18:31] LABS: CREATININE, URINE 93.2 MG/DL; MALB URINE SIEMENS 10.1 MG/L; MAU/CREAT RATIO 10.8 MCG/MG (0.0-30.0)
== END ==
LOC: M SFHCADAM 15:52
PROVIDERS: ATTEND Physician Assistant
DX: R10.9 Unspecified abdominal pain (principal); E11.22 Type 2 diabetes mellitus with diabetic chronic kidney disease

== ENCOUNTER → 2021-09-12 | Outpatient (CLI) | payer OTHER, MEDICAID ==
[~2021-09-12] MED LIST changes: +K-TA10TA PO; +META0.52 PO
== END ==
LOC: M WUC 09:04
PROVIDERS: ATTEND Family Medicine
DX: M43.04 Spondylolysis, thoracic region (principal); M43.06 Spondylolysis, lumbar region; M85.9 Disorder of bone density and structure, unspecified; M25.78 Osteophyte, vertebrae

== ENCOUNTER → 2021-09-12 | Outpatient (CLI) | payer OTHER, MEDICAID ==
[~2021-09-12] MED LIST changes: -K-TA10TA PO; -META0.52 PO
[2021-09-12 11:49] LABS: HEMATOCRIT 37.6 % (36.0-47.0); HEMOGLOBIN 12.2 g/dl (12.0-15.5); MEAN CORPUSCULAR HEMOGLOBIN 35.9 pg (27.0-33.0); MEAN CORPUSCULAR HGB CONC 32.4 g/dl (32.0-36.5); MEAN CORPUSCULAR VOLUME 110.6 fl (80.0-96.0); PLATELET COUNT, AUTOMATED 231 10^3/uL (150-450); WHITE BLOOD COUNT 8.8 10^3/uL (4.0-10.0)
[2021-09-12 12:02] LABS: INR 0.97; PROTHROMBIN TIME 13.3 SECONDS (12.7-14.5)
[2021-09-12 12:23] LABS: ALBUMIN 3.6 GM/DL (3.2-5.2); ALT/SGPT 28 U/L (12-78); BILIRUBIN,TOTAL 0.6 MG/DL (0.2-1.0); BLOOD UREA NITROGEN 15 MG/DL (7-18); CALCIUM LEVEL 9.3 MG/DL (8.8-10.2); CARBON DIOXIDE LEVEL 30 MEQ/L (21-32); CHLORIDE LEVEL 112 MEQ/L (98-107); CREATININE FOR GFR 0.93 MG/DL (0.55-1.30); GLOMERULAR FILTRATION RATE > 60.0 (>39); GLUCOSE, FASTING 133 MG/DL (70-100); POTASSIUM SERUM 4.5 MEQ/L (3.5-5.1); SODIUM LEVEL 144 MEQ/L (136-145); TOTAL PROTEIN 6.4 GM/DL (6.4-8.2)
== END ==
LOC: M WUC 09:12
PROVIDERS: ATTEND Urology
DX: N39.41 Urge incontinence (principal)

== ENCOUNTER → 2021-09-12 | Outpatient (CLI) | payer OTHER, MEDICAID | LOC: M RAD 11:23 | PROVIDERS: ATTEND Urology | DX: N39.41 Urge incontinence (principal); R94.31 Abnormal electrocardiogram [ECG] [EKG] ==

== ENCOUNTER → 2021-09-26 | Outpatient (CLI) | payer OTHER, MEDICAID ==
[~2021-09-26] MED LIST changes: +K-TA10TA PO; +META0.52 PO
== END ==
LOC: M LABSMTC 09:46
PROVIDERS: ATTEND Anesthesiology
DX: Z01.812 Encounter for preprocedural laboratory examination (principal); Z20.822 Contact with and (suspected) exposure to COVID-19

== ENCOUNTER 2021-10-01 06:06 | Day surgery (SDC) | payer OTHER, MEDICAID ==
[~2021-10-01] VITALS: Ht 152.4 cm; Wt 67.3 kg
[~2021-10-01 06:06] MED LIST changes: +LR 500 ML IV ONE; +ceFAZolin SOD 2 GM in IV 1 EA IV ONE
[2021-10-01] MEDS ORDERED: DILT180C78 PO (06:57)
[2021-10-01] MEDS ORDERED: LIDOCAINE 2% 100MG/5ML SDV (FOR ANES.) As Ordered ONE (07:06)
[2021-10-01] MEDS ORDERED: propofoL 200 MG/20 ML VIAL As Ordered ONE (07:07)
[2021-10-01] MEDS ORDERED: MIDAZOLAM INJ 2MG/2ML VIAL (J2250 PER 1MG) As Ordered ONE (07:07)
[2021-10-01] MEDS ORDERED: LIDOCAINE 1% SDV 30ML VIAL As Ordered ONE (07:11)
[2021-10-01] MEDS ORDERED: fentaNYL 100 MCG/2 ML INJECTION As Ordered ONE (07:36)
[2021-10-01] MEDS ORDERED: ONDANSETRON 4MG/2ML VIAL As Ordered ONE (07:44)
[2021-10-01] MEDS ORDERED: HYDR-3713 PO (08:59)
[2021-10-01] MEDS ORDERED: CEPH500T PO (08:59)
[2021-10-01 09:27] VITALS: BP 181/84
== END 2021-10-01 09:30 | disposition home or self-care (01) ==
LOC: M SDC 06:06
PROVIDERS: ATTEND Urology
DX: R32 Unspecified urinary incontinence (principal); N32.81 Overactive bladder; I10 Essential (primary) hypertension; E78.5 Hyperlipidemia, unspecified; E11.9 Type 2 diabetes mellitus without complications; E03.9 Hypothyroidism, unspecified; F41.9 Anxiety disorder, unspecified; F32.9 Major depressive disorder, single episode, unspecified; J45.909 Unspecified asthma, uncomplicated; Z86.73 Personal history of transient ischemic attack (TIA), and cerebral infarction without residual deficits; N18.9 Chronic kidney disease, unspecified; K21.9 Gastro-esophageal reflux disease without esophagitis; G43.909 Migraine, unspecified, not intractable, without status migrainosus; K57.92 Diverticulitis of intestine, part unspecified, without perforation or abscess without bleeding; G35 Multiple sclerosis; J30.2 Other seasonal allergic rhinitis; Z79.82 Long term (current) use of aspirin; Z79.4 Long term (current) use of insulin; Z79.84 Long term (current) use of oral hypoglycemic drugs; Z79.899 Other long term (current) drug therapy; Z79.51 Long term (current) use of inhaled steroids; Z88.8 Allergy status to other drugs, medicaments and biological substances; Z88.0 Allergy status to penicillin
CPT/HCPCS: 64590; 76000; C1778; C1897; J0690; J2250; J2405; J3010

== ENCOUNTER → 2021-10-09 | Outpatient (CLI) | payer OTHER, MEDICAID ==
[~2021-10-09] MED LIST changes: +CEPH500T PO; +DILT180C78 PO; +HYDR-3713 PO; -LR 500 ML IV ONE; -ceFAZolin SOD 2 GM in IV 1 EA IV ONE
== END ==
LOC: M WHC 10:29
PROVIDERS: ATTEND Family Medicine
DX: Z12.31 Encounter for screening mammogram for malignant neoplasm of breast (principal); Z13.820 Encounter for screening for osteoporosis; Z80.0 Family history of malignant neoplasm of digestive organs; Z98.890 Other specified postprocedural states; Z92.0 Personal history of contraception; Z92.29 Personal history of other drug therapy; M85.851 Other specified disorders of bone density and structure, right thigh; M85.852 Other specified disorders of bone density and structure, left thigh

== ENCOUNTER → 2021-12-11 | Outpatient (REF) | payer OTHER, MEDICAID ==
[2021-12-11 16:23] LABS: HEMATOCRIT 41.2 % (36.0-47.0); HEMOGLOBIN 13.1 g/dl (12.0-15.5); MEAN CORPUSCULAR HEMOGLOBIN 34.9 pg (27.0-33.0); MEAN CORPUSCULAR HGB CONC 31.8 g/dl (32.0-36.5); MEAN CORPUSCULAR VOLUME 109.9 fl (80.0-96.0); PLATELET COUNT, AUTOMATED 214 10^3/uL (150-450); RED BLOOD COUNT 3.75 10^6/uL (4.00-5.40); WHITE BLOOD COUNT 8.9 10^3/uL (4.0-10.0)
[2021-12-11 17:14] LABS: ALBUMIN 3.7 GM/DL (3.2-5.2); BILIRUBIN,TOTAL 0.4 MG/DL (0.2-1.0); C REACTIVE PROTEIN QUANTITATIV 0.3 MG/DL (0.00-0.30); CALCIUM LEVEL 9.6 MG/DL (8.8-10.2); CREATININE FOR GFR 1.04 MG/DL (0.55-1.30); FREE T4 0.98 NG/DL (0.76-1.46); GLOMERULAR FILTRATION RATE 55.3 (>39); THYROID STIMULATING HORMONE 0.734 uIU/ML (0.358-3.740); TOTAL PROTEIN 6.4 GM/DL (6.4-8.2)
[2021-12-11 18:08] LABS: HEMOGLOBIN A1c 6.8 %
== END ==
LOC: M SFHCADAM 11:46
PROVIDERS: ATTEND Family Medicine
DX: E11.8 Type 2 diabetes mellitus with unspecified complications (principal); F32.9 Major depressive disorder, single episode, unspecified

== ENCOUNTER → 2021-12-11 | Outpatient (CLI) | payer OTHER, MEDICAID | LOC: M ADAMS 12:03 | PROVIDERS: ATTEND Family Medicine | DX: M19.011 Primary osteoarthritis, right shoulder (principal); M77.8 Other enthesopathies, not elsewhere classified ==

== ENCOUNTER → 2022-02-27 | Outpatient (REF) | payer OTHER, MEDICAID ==
[2022-02-27 13:23] LABS: HEMATOCRIT 39.4 % (36.0-47.0); MEAN CORPUSCULAR HEMOGLOBIN 36.6 pg (27.0-33.0); PLATELET COUNT, AUTOMATED 191 10^3/uL (150-450); RED BLOOD COUNT 3.55 10^6/uL (4.00-5.40); WHITE BLOOD COUNT 9.4 10^3/uL (4.0-10.0)
[2022-02-27 14:13] LABS: ALBUMIN 3.8 GM/DL (3.2-5.2); BILIRUBIN,TOTAL 0.3 MG/DL (0.2-1.0); CALCIUM LEVEL 9.7 MG/DL (8.8-10.2); CHOLESTEROL RISK RATIO 2.911 (<5); CREATININE FOR GFR 1.01 MG/DL (0.55-1.30); FREE T4 1.07 NG/DL (0.76-1.46); POTASSIUM SERUM 4.9 MEQ/L (3.5-5.1); THYROID STIMULATING HORMONE 0.91 uIU/ML (0.358-3.740); TOTAL PROTEIN 6.5 GM/DL (6.4-8.2)
[2022-02-27 15:37] LABS: HEMOGLOBIN A1c 7.2 %
== END ==
LOC: M SFHCADAM 10:08
PROVIDERS: ATTEND Family Medicine
DX: G35 Multiple sclerosis (principal); M06.4 Inflammatory polyarthropathy; E11.22 Type 2 diabetes mellitus with diabetic chronic kidney disease; E78.2 Mixed hyperlipidemia; Z95.5 Presence of coronary angioplasty implant and graft; E03.9 Hypothyroidism, unspecified; I48.92 Unspecified atrial flutter

== ENCOUNTER → 2022-04-24 | Outpatient (CLI) | payer OTHER, MEDICAID ==
[~2022-04-24] MED LIST changes: +CLOP75TA99 PO; -PLAV1TAB2 PO
== END ==
LOC: M RAD 11:22
PROVIDERS: ATTEND Nurse Practitioner Family
DX: N18.31 Chronic kidney disease, stage 3a (principal); R33.9 Retention of urine, unspecified

== ENCOUNTER → 2022-07-04 | Outpatient (REF) | payer OTHER, MEDICAID ==
[2022-07-04 12:56] LABS: HEMATOCRIT 38.2 % (36.0-47.0); HEMOGLOBIN 12.3 g/dl (12.0-15.5); MEAN CORPUSCULAR HEMOGLOBIN 35.5 pg (27.0-33.0); MEAN CORPUSCULAR HGB CONC 32.2 g/dl (32.0-36.5); MEAN CORPUSCULAR VOLUME 110.4 fl (80.0-96.0); PLATELET COUNT, AUTOMATED 209 10^3/uL (150-450); RED BLOOD COUNT 3.46 10^6/uL (4.00-5.40); WHITE BLOOD COUNT 7.6 10^3/uL (4.0-10.0)
[2022-07-04 13:15] LABS: HEMOGLOBIN A1c 7.6 % (4.0-6.0)
[2022-07-04 13:30] LABS: CREATININE, URINE 185.2 MG/DL; MALB URINE SIEMENS < 3.0 MG/DL; MAU/CREAT RATIO 1.6 MCG/MG (0.0-30.0)
[2022-07-04 13:38] LABS: ALBUMIN 3.7 G/DL (3.2-5.2); ALKALINE PHOSPHATASE 43 U/L (46-116); ALT/SGPT 22 U/L (7.0-40); AST/SGOT 24 U/L (<34); BILIRUBIN,TOTAL 0.4 MG/DL (0.3-1.2); BLOOD UREA NITROGEN 14 MG/DL (9-23); CARBON DIOXIDE LEVEL 27 MMOL/L (20-31); CHLORIDE LEVEL 111 MMOL/L (98-107); CHOLESTEROL LEVEL 120 MG/DL (<200); CHOLESTEROL RISK RATIO 2.82 (<5); FOLATE > 24.00 NG/ML (>5.4); FREE T4 1.19 NG/DL (0.89-1.76); GLOMERULAR FILTRATION RATE > 60.0 (>39); GLUCOSE, FASTING 69 MG/DL (74-106); HDL CHOLESTEROL 42.5 MG/DL (>40); LDL CHOLESTEROL 44.9 MG/DL (<100); MAGNESIUM LEVEL 1.6 MG/DL (1.8-2.4); NON-HDL-C 78 MG/DL; SODIUM LEVEL 145 MMOL/L (136-145); THYROID STIMULATING HORMONE 0.565 uIU/ML (0.55-4.78); TRIGLYCERIDES LEVEL 163 MG/DL (<150); VITAMIN B12 LEVEL 1166 PG/ML (211-911)
== END ==
LOC: M SFHCADAM 10:16
PROVIDERS: ATTEND Family Medicine
DX: R41.3 Other amnesia (principal); E03.9 Hypothyroidism, unspecified; E11.22 Type 2 diabetes mellitus with diabetic chronic kidney disease; E83.40 Disorders of magnesium metabolism, unspecified; I25.10 Atherosclerotic heart disease of native coronary artery without angina pectoris; E08.22 Diabetes mellitus due to underlying condition with diabetic chronic kidney disease; Z79.4 Long term (current) use of insulin; R60.0 Localized edema

== ENCOUNTER → 2022-07-24 | Outpatient (CLI) | payer OTHER, MEDICAID | LOC: M PLAIMG 08:06 | PROVIDERS: ATTEND Family Medicine | DX: R41.3 Other amnesia (principal); G35 Multiple sclerosis; G43.909 Migraine, unspecified, not intractable, without status migrainosus ==

== ENCOUNTER → 2022-08-19 | Outpatient (CLI) | payer OTHER, MEDICAID ==
[~2022-08-19] MED LIST changes: +AIMO70IN SC; +B-12100021 PO; +BAYE81TA10 PO; +CVS-277 PO; +DIVA250T7 PO; +LEVOTAB10 PO; +METH-1022 PO; +NATU1TAB5 PO; +POTA1TAB14 PO; +RA M500C PO; +ROPI2TAB24 PO; -VENTAER; +VENTAER INH
== END ==
LOC: M LABSMTC 09:47
PROVIDERS: ATTEND Anesthesiology
DX: Z20.822 Contact with and (suspected) exposure to COVID-19 (principal)

== ENCOUNTER 2022-08-23 05:58 | Day surgery (SDC) | payer OTHER, MEDICAID ==
[~2022-08-23] VITALS: Ht 154.9 cm; Wt 67.6 kg
[2022-08-23 06:37] LABS: HEMATOCRIT 38.7 % (36.0-47.0); HEMOGLOBIN 12.5 g/dl (12.0-15.5); MEAN CORPUSCULAR HEMOGLOBIN 35.5 pg (27.0-33.0); MEAN CORPUSCULAR HGB CONC 32.3 g/dl (32.0-36.5); MEAN CORPUSCULAR VOLUME 109.9 fl (80.0-96.0); PLATELET COUNT, AUTOMATED 208 10^3/uL (150-450); RED BLOOD COUNT 3.52 10^6/uL (4.00-5.40); WHITE BLOOD COUNT 5.7 10^3/uL (4.0-10.0)
[2022-08-23] MEDS ORDERED: ONDANSETRON 4MG 2ML VIAL As Ordered ONE (06:55)
[2022-08-23] MEDS ORDERED: LIDOCAINE 2% 100MG/5ML SDV (FOR ANES.) As Ordered ONE (06:55)
[2022-08-23] MEDS ORDERED: propofoL 200 MG/20 ML VIAL As Ordered ONE (06:55)
[2022-08-23] MEDS ORDERED: KETOROLAC 60MG 2ML VIAL As Ordered ONE (06:55)
[2022-08-23] MEDS ORDERED: fentaNYL 100 MCG/2 ML INJECTION As Ordered ONE (06:59)
[2022-08-23] MEDS ORDERED: LR 1,000 ML IV SCH ×2 (07:10→09:25)
[2022-08-23] MEDS ORDERED: BUPIVACAINE/EPIN 0.25% 30ML VIAL As Ordered ONE (07:11)
[2022-08-23] MEDS ORDERED: VASOPRESSIN INJ 20UNITS/ML 1ML VIAL As Ordered ONE (07:12)
[2022-08-23] MEDS ORDERED: INSULIN LISPRO (NovoLOG) PER UNIT SC PRN (07:15)
[2022-08-23] MEDS ORDERED: ceFAZolin SOD 2 GM in IV 1 EA IV ONE (07:20)
[2022-08-23] MEDS ORDERED: ROCURONIUM BROMIDE 50MG/5ML VIAL As Ordered ONE (07:24)
[2022-08-23] MEDS ORDERED: SUGAMMADEX SODIUM 500 MG/5 ML VIAL (BRIDION) As Ordered ONE (07:25)
[2022-08-23] MEDS ORDERED: ACETAMINOPHEN 1000MG 100ML IV BAG As Ordered ONE (08:03)
[2022-08-23] MEDS ORDERED: MORPHINE 2 MG/ML 1ML VIAL IV PRN (09:15)
[2022-08-23] MEDS ORDERED: fentaNYL 100 MCG/2 ML INJECTION IV PRN (09:15)
[2022-08-23] MEDS ORDERED: ONDANSETRON 4MG 2ML VIAL IV PRN (09:15)
[2022-08-23] MEDS ORDERED: oxyCODONE 5MG TAB PO PRN (09:15)
[2022-08-23] MEDS ORDERED: PERCOCET 5MG/325MG TAB PO PRN (09:25)
[2022-08-23 11:00] VITALS: BP 187/80
== END 2022-08-23 11:06 | disposition home or self-care (01) ==
LOC: M SDC 05:58
PROVIDERS: ATTEND Specialist
DX: N81.10 Cystocele, unspecified (principal); K21.9 Gastro-esophageal reflux disease without esophagitis; E11.9 Type 2 diabetes mellitus without complications; I10 Essential (primary) hypertension; R07.9 Chest pain, unspecified; J30.2 Other seasonal allergic rhinitis; E03.9 Hypothyroidism, unspecified; Z79.899 Other long term (current) drug therapy; Z79.4 Long term (current) use of insulin; Z79.84 Long term (current) use of oral hypoglycemic drugs; Z79.01 Long term (current) use of anticoagulants; G35 Multiple sclerosis; Z86.73 Personal history of transient ischemic attack (TIA), and cerebral infarction without residual deficits; G43.909 Migraine, unspecified, not intractable, without status migrainosus; F41.9 Anxiety disorder, unspecified; F32.A Depression, unspecified; J45.909 Unspecified asthma, uncomplicated
CPT/HCPCS: 36415; 57240; 85027; 86850; 86900; 86901; 88302; J0131; J0690; J1815; J1885; J2405; J3010

== ENCOUNTER → 2022-09-30 | Outpatient (REF) | payer OTHER, MEDICAID ==
[~2022-09-30] MED LIST changes: +ARTIDRO4 OP; -POLYOPD OP; +POTA-298 PO; -POTA1TAB14 PO
== END ==
LOC: M SFHCWAGY 12:36
PROVIDERS: ATTEND Specialist
DX: N39.0 Urinary tract infection, site not specified (principal)

== ENCOUNTER → 2022-10-10 | Outpatient (CLI) | payer OTHER, MEDICAID | LOC: M WHC 12:36 | PROVIDERS: ATTEND Family Medicine | DX: Z53.9 Procedure and treatment not carried out, unspecified reason (principal) ==

== ENCOUNTER → 2022-12-20 | Outpatient (CLI) | payer OTHER, MEDICAID ==
[~2022-12-20] MED LIST changes: -K-TA10TA PO; +POTA-164 PO; -ROPI1TAB3 PO; +ROPI1TAB73 PO
== END ==
LOC: M WHC 09:34
PROVIDERS: ATTEND Family Medicine
DX: Z12.31 Encounter for screening mammogram for malignant neoplasm of breast (principal)

== ENCOUNTER → 2023-02-05 | Outpatient (REF) | payer OTHER ==
[2023-02-05 13:55] LABS: HEMOGLOBIN A1c 8.2 % (4.0-6.0)
[2023-02-05 14:04] LABS: CREATININE, URINE 237.6 MG/DL
[2023-02-05 14:05] LABS: ALBUMIN 3.7 G/DL (3.2-5.2); ALKALINE PHOSPHATASE 48 U/L (46-116); ALT/SGPT 28 U/L (7.0-40); AST/SGOT 21 U/L (<34); BILIRUBIN,TOTAL 0.3 MG/DL (0.3-1.2); BLOOD UREA NITROGEN 18 MG/DL (9-23); CALCIUM LEVEL 8.9 MG/DL (8.3-10.6); CARBON DIOXIDE LEVEL 26 MMOL/L (20-31); CHLORIDE LEVEL 110 MMOL/L (98-107); CHOLESTEROL LEVEL 132 MG/DL (<200); GLOMERULAR FILTRATION RATE > 60.0 (>39); GLUCOSE, FASTING 88 MG/DL (74-106); HDL CHOLESTEROL 47.1 MG/DL (>40); LDL CHOLESTEROL 42.7 MG/DL (<100); NON-HDL-C 84.9 MG/DL; POTASSIUM SERUM 4.1 MMOL/L (3.5-5.1); SODIUM LEVEL 146 MMOL/L (136-145); THYROID STIMULATING HORMONE 1.899 uIU/ML (0.55-4.78); TOTAL PROTEIN 5.8 G/DL (5.7-8.2); TRIGLYCERIDES LEVEL 211 MG/DL (<150)
== END ==
LOC: M SFHCADAM 08:57
PROVIDERS: ATTEND Family Medicine
DX: E11.8 Type 2 diabetes mellitus with unspecified complications (principal); Z95.5 Presence of coronary angioplasty implant and graft; F32.9 Major depressive disorder, single episode, unspecified

== ENCOUNTER 2023-03-26 08:06 | Day surgery (SDC) | payer OTHER, MEDICAID ==
[~2023-03-26] VITALS: Ht 152.4 cm; Wt 69.9 kg
[~2023-03-26 08:06] MED LIST changes: +BSS IRRIG/VANCO(10MG)/TOBRA(5MG)/EPINEPH(1:1000-0.5CC)500ML BAG-ORONLY IR ONE; +CYCLOPENTOLATE 1% OPHTH SOLN 2ML BTL OS SCH; +LIDOCAINE 3.5 % 1ML OPHTH TOPICAL GEL OU ONE; +OFLOXACIN 0.3 % (OCUFLOX) OPTH SOL 5ML OS ONE; -OXYB5TAB10 PO; +OXYB5TAB11 PO; +PHENYLEPHRINE 10% OPHTH SOL 5ML OS PRN; +PHENYLEPHRINE 2.5% OPHTH SOL 2ML OS SCH; +TROPICAMIDE 1% OPHTH SOLN 15ML OS SCH
[2023-03-26] MEDS ORDERED: fentaNYL 100 MCG/2 ML INJECTION As Ordered ONE (10:40)
[2023-03-26] MEDS ORDERED: MIDAZOLAM INJ 2MG/2ML VIAL As Ordered ONE (10:40)
[2023-03-26] MEDS ORDERED: INSULIN LISPRO (NovoLOG) PER UNIT SC PRN (10:45)
[2023-03-26] MEDS ORDERED: CEFUROXIME 1MG/0.1ML INTRACAMERAL INJ As Ordered ONE (11:13)
[2023-03-26 11:30] VITALS: BP 163/79; TEMP 97.8; O2SAT 96
== END 2023-03-26 15:10 | disposition home or self-care (01) ==
LOC: M SDC 08:06
PROVIDERS: ATTEND Ophthalmology
DX: E11.36 Type 2 diabetes mellitus with diabetic cataract (principal); H26.9 Unspecified cataract; I10 Essential (primary) hypertension; I48.91 Unspecified atrial fibrillation; J45.909 Unspecified asthma, uncomplicated; E78.00 Pure hypercholesterolemia, unspecified; Z79.84 Long term (current) use of oral hypoglycemic drugs; Z79.01 Long term (current) use of anticoagulants; Z79.4 Long term (current) use of insulin; Z79.899 Other long term (current) drug therapy
CPT/HCPCS: 66984; 92015; J0697; J1815; J2250; J3010; V2788

== ENCOUNTER → 2023-06-05 | Outpatient (REF) | payer OTHER ==
[~2023-06-05] MED LIST changes: -BSS IRRIG/VANCO(10MG)/TOBRA(5MG)/EPINEPH(1:1000-0.5CC)500ML BAG-ORONLY IR ONE; -CYCLOPENTOLATE 1% OPHTH SOLN 2ML BTL OS SCH; -LIDOCAINE 3.5 % 1ML OPHTH TOPICAL GEL OU ONE; -OFLOXACIN 0.3 % (OCUFLOX) OPTH SOL 5ML OS ONE; -PHENYLEPHRINE 10% OPHTH SOL 5ML OS PRN; -PHENYLEPHRINE 2.5% OPHTH SOL 2ML OS SCH; -TROPICAMIDE 1% OPHTH SOLN 15ML OS SCH
== END ==
LOC: M SFHCADAM 14:11
PROVIDERS: ATTEND Family Medicine
DX: E11.8 Type 2 diabetes mellitus with unspecified complications (principal); A08.4 Viral intestinal infection, unspecified

== ENCOUNTER → 2023-11-12 | Outpatient (REF) | payer OTHER ==
[~2023-11-12] MED LIST changes: -OXYB5TAB11 PO; +OXYB5TAB14 PO
== END ==
LOC: M LAB REF 16:49
PROVIDERS: ATTEND Nurse Practitioner Family
DX: N39.0 Urinary tract infection, site not specified (principal)

== ENCOUNTER → 2023-12-04 | Outpatient (REF) | payer OTHER ==
[2023-12-04 19:28] LABS: HEMATOCRIT 38.3 % (36.0-47.0); HEMOGLOBIN 12.7 g/dl (12.0-15.5); MEAN CORPUSCULAR HGB CONC 33.2 g/dl (32.0-36.5); MEAN CORPUSCULAR VOLUME 102.7 fl (80.0-96.0); PLATELET COUNT, AUTOMATED 201 10^3/uL (150-450); RED BLOOD COUNT 3.73 10^6/uL (4.00-5.40); WHITE BLOOD COUNT 6.3 10^3/uL (4.0-10.0)
[2023-12-04 19:46] LABS: HEMOGLOBIN A1c 11.5 % (4.0-6.0)
[2023-12-04 20:08] LABS: THYROID STIMULATING HORMONE 1.451 uIU/ML (0.55-4.78)
[2023-12-04 20:09] LABS: FREE T4 0.93 NG/DL (0.89-1.76)
[2023-12-04 20:11] LABS: ALBUMIN 3.9 G/DL (3.2-5.2); ALKALINE PHOSPHATASE 59 U/L (46-116); ALT/SGPT 46 U/L (7.0-40); AST/SGOT 30 U/L (<34); BILIRUBIN,TOTAL 0.3 MG/DL (0.3-1.2); BLOOD UREA NITROGEN 16 MG/DL (9-23); CALCIUM LEVEL 10.1 MG/DL (8.3-10.6); CARBON DIOXIDE LEVEL 26 MMOL/L (20-31); CHLORIDE LEVEL 106 MMOL/L (98-107); CHOLESTEROL LEVEL 146 MG/DL (<200); CHOLESTEROL RISK RATIO 3.29 (<5); CREATININE FOR GFR 0.79 MG/DL (0.55-1.30); GLOMERULAR FILTRATION RATE > 60.0 (>39); GLUCOSE, FASTING 312 MG/DL (74-106); HDL CHOLESTEROL 44.3 MG/DL (>40); LDL CHOLESTEROL 74.9 MG/DL (<100); NON-HDL-C 101.7 MG/DL; SODIUM LEVEL 139 MMOL/L (136-145); TOTAL PROTEIN 6.4 G/DL (5.7-8.2); TRIGLYCERIDES LEVEL 134 MG/DL (<150)
== END ==
LOC: M SFHCADAM 14:22
PROVIDERS: ATTEND Family Medicine
DX: R79.89 Other specified abnormal findings of blood chemistry (principal); E11.8 Type 2 diabetes mellitus with unspecified complications; E78.2 Mixed hyperlipidemia

== ENCOUNTER → 2024-03-16 | Outpatient (REF) | payer OTHER ==
[2024-03-16 19:36] LABS: HEMATOCRIT 40.2 % (36.0-47.0); MEAN CORPUSCULAR HEMOGLOBIN 34.7 pg (27.0-33.0); MEAN CORPUSCULAR HGB CONC 32.3 g/dl (32.0-36.5); MEAN CORPUSCULAR VOLUME 107.2 fl (80.0-96.0); PLATELET COUNT, AUTOMATED 227 10^3/uL (150-450); RED BLOOD COUNT 3.75 10^6/uL (4.00-5.40); WHITE BLOOD COUNT 7.5 10^3/uL (4.0-10.0)
[2024-03-16 19:50] LABS: ALBUMIN 3.5 G/DL (3.2-5.2); BILIRUBIN,TOTAL 0.3 MG/DL (0.3-1.2); CALCIUM LEVEL 10.1 MG/DL (8.3-10.6); CREATININE FOR GFR 1.11 MG/DL (0.55-1.30); GLOMERULAR FILTRATION RATE 50.9 (>39); POTASSIUM SERUM 4.1 MMOL/L (3.5-5.1); TOTAL PROTEIN 6.3 G/DL (5.7-8.2)
== END ==
LOC: M SFHCADAM 14:37
PROVIDERS: ATTEND Family Medicine
DX: G35 Multiple sclerosis (principal); E08.22 Diabetes mellitus due to underlying condition with diabetic chronic kidney disease

== ENCOUNTER → 2024-06-02 | Outpatient (REF) | payer OTHER ==
[~2024-06-02] MED LIST changes: +ATOR-398 PO; -LIPI80TA PO; +META-10 PO; -META1TAB22 PO
[2024-06-02 18:55] LABS: HEMATOCRIT 41.2 % (36.0-47.0); HEMOGLOBIN 13.2 g/dl (12.0-15.5); MEAN CORPUSCULAR HEMOGLOBIN 33.7 pg (27.0-33.0); MEAN CORPUSCULAR VOLUME 105.1 fl (80.0-96.0); PLATELET COUNT, AUTOMATED 230 10^3/uL (150-450); RED BLOOD COUNT 3.92 10^6/uL (4.00-5.40); WHITE BLOOD COUNT 6.4 10^3/uL (4.0-10.0)
[2024-06-02 19:16] LABS: THYROID STIMULATING HORMONE 1.592 uIU/ML (0.55-4.78)
[2024-06-02 19:17] LABS: ALBUMIN 3.9 G/DL (3.2-5.2); ALKALINE PHOSPHATASE 51 U/L (35-104); ALT/SGPT 32 U/L (7.0-40); AST/SGOT 23 U/L (<34); BILIRUBIN,TOTAL 0.3 MG/DL (0.3-1.2); BLOOD UREA NITROGEN 13 MG/DL (9-23); CALCIUM LEVEL 9.6 MG/DL (8.3-10.6); CARBON DIOXIDE LEVEL 25 MMOL/L (20-31); CHLORIDE LEVEL 111 MMOL/L (98-107); CHOLESTEROL LEVEL 134 MG/DL (<200); CHOLESTEROL RISK RATIO 2.65 (<5); FOLATE > 24.00 NG/ML (>5.4); GLOMERULAR FILTRATION RATE > 60.0 (>39); GLUCOSE, FASTING 226 MG/DL (74-106); HDL CHOLESTEROL 50.4 MG/DL (>40); LDL CHOLESTEROL 45.6 MG/DL (<100); NON-HDL-C 83.6 MG/DL; POTASSIUM SERUM 4.3 MMOL/L (3.5-5.1); SODIUM LEVEL 143 MMOL/L (136-145); TOTAL PROTEIN 6.7 G/DL (5.7-8.2); TRIGLYCERIDES LEVEL 190 MG/DL (<150)
[2024-06-02 19:18] LABS: VITAMIN B12 LEVEL 1610 PG/ML (211-911)
[2024-06-02 19:19] LABS: FREE T4 1.16 NG/DL (0.89-1.76)
[2024-06-02 19:28] LABS: HEMOGLOBIN A1c 11.2 % (4.0-6.0)
== END ==
LOC: M SFHCADAM 14:06
PROVIDERS: ATTEND Family Medicine
DX: E11.8 Type 2 diabetes mellitus with unspecified complications (principal); G35 Multiple sclerosis; E78.2 Mixed hyperlipidemia; M06.4 Inflammatory polyarthropathy

== ENCOUNTER → 2024-09-09 | Outpatient (REF) | payer OTHER | LOC: M SFHCADAM 14:18 | PROVIDERS: ATTEND Family Medicine | DX: E11.8 Type 2 diabetes mellitus with unspecified complications (principal); Z53.8 Procedure and treatment not carried out for other reasons ==

== ENCOUNTER → 2024-12-08 | Outpatient (CLI) | payer OTHER ==
[~2024-12-08] MED LIST changes: -DEPA250T32 PO; +DIVA-65 PO; +TOPI-257 PO; -TOPI100T9 PO
[2024-12-08 17:59] LABS: ESTIMATED AVERAGE GLUCOSE 220.0 MG/DL (60-110)
[2024-12-08 18:11] LABS: CALCIUM LEVEL 9.5 MG/DL (8.3-10.6); CARBON DIOXIDE LEVEL 27.0 MMOL/L (20-31); CHLORIDE LEVEL 105.0 MMOL/L (98-107); CREATININE FOR GFR 0.98 MG/DL (0.55-1.30); GLOMERULAR FILTRATION RATE 59.8 (>39); POTASSIUM SERUM 3.8 MMOL/L (3.5-5.1); SODIUM LEVEL 144.0 MMOL/L (136-145)
== END ==
LOC: M PLALAB 15:04
PROVIDERS: ATTEND Family Medicine
DX: E11.8 Type 2 diabetes mellitus with unspecified complications (principal)

== ENCOUNTER → 2025-01-19 | Outpatient (REF) | payer OTHER | LOC: M SFHCADAM 12:34 | PROVIDERS: ATTEND Physician Assistant | DX: R30.0 Dysuria (principal) ==

== ENCOUNTER → 2025-03-15 | Outpatient (REF) | payer OTHER ==
[2025-03-15 17:33] LABS: ALT/SGPT 24.0 U/L (7.0-40); AST/SGOT 20.0 U/L (<34); CALCIUM LEVEL 9.7 MG/DL (8.3-10.6); CARBON DIOXIDE LEVEL 24.0 MMOL/L (20-31); CHLORIDE LEVEL 107.0 MMOL/L (98-107); CHOLESTEROL LEVEL 147.0 MG/DL (<200); CHOLESTEROL RISK RATIO 2.83 (<5); CREATININE FOR GFR 0.86 MG/DL (0.55-1.30); FREE T4 0.95 NG/DL (0.89-1.76); GLOMERULAR FILTRATION RATE 69.5 (>39); LDL CHOLESTEROL 38.6 MG/DL (<100); NON-HDL-C 95.2 MG/DL; POTASSIUM SERUM 4.5 MMOL/L (3.5-5.1); SODIUM LEVEL 143.0 MMOL/L (136-145); TRIGLYCERIDES LEVEL 283.0 MG/DL (<150)
[2025-03-15 17:38] LABS: PLATELET COUNT, AUTOMATED 220 10^3/uL (150-450)
[2025-03-15 17:57] LABS: APPEARANCE, URINE CLEAR (CLEAR); BACTERIA, URINE AUTO NEGATIVE (NEGATIVE); BILIRUBIN, URINE AUTO NEGATIVE (NEGATIVE); BLOOD, URINE BLOOD NEGATIVE (NEGATIVE); GLUCOSE, URINE (UA) AUTO 3+ mg/dL (NEGATIVE); KETONE, URINE AUTO NEGATIVE (NEGATIVE); LEUKOCYTE ESTERASE, URINE AUTO NEGATIVE (NEGATIVE); NITRITE, URINE AUTO NEGATIVE (NEGATIVE); PROTEIN, URINE AUTO NEGATIVE (NEGATIVE); RBC, URINE AUTO 0 /HPF (0-3); SPECIFIC GRAVITY URINE AUTO 1.024 (1.002-1.035); SQUAMOUS EPITHELIAL CELL UR AU 0 /HPF (0-6); UROBILINOGEN, URINE AUTO 0.2 mg/dL (0.0-2.0); WBC, URINE AUTO 0 /HPF (0-3)
[2025-03-15 18:58] LABS: ESTIMATED AVERAGE GLUCOSE 258.0 MG/DL (60-110)
== END ==
LOC: M SFHCADAM 12:30
PROVIDERS: ATTEND Family Medicine
DX: I11.9 Hypertensive heart disease without heart failure (principal); E11.8 Type 2 diabetes mellitus with unspecified complications; E78.2 Mixed hyperlipidemia; R30.0 Dysuria